=== PATIENT | male | born 1940 | race Caucasian/White ===

== ENCOUNTER 2016-03-05 00:05 | Day surgery (SDC) | payer MEDICARE, OTHER ==
[2016-03-05] VITALS (15 sets, daily range): BP systolic 123–171; BP diastolic 65–95; PULSE 48–72; RESP 10–22; O2SAT 91–100
[~2016-03-05] VITALS: Ht 175.3 cm; Wt 104.3 kg
[~2016-03-05 00:05] MED LIST: ALLO300T2 PO; ATEN50TA PO; FLC50T PO; FUR20 PO; LISI1TAB9 PO; RIVA20TA PO
[2016-03-05] MEDS ORDERED: EPHEDrine/NS 5 mg/mL 5 mL Syringe ONE (00:06)
[2016-03-05] MEDS ORDERED: Ondansetron 2 mg/mL 2 mL Inj ONE (00:06)
[2016-03-05] MEDS ORDERED: Glycopyrrolate 0.2 mg/mL 5 mL Inj ONE (00:06)
[2016-03-05] MEDS ORDERED: Neostigmine 1 mg/mL 5 mL Inj ONE (00:06)
[2016-03-05] MEDS ORDERED: fentaNYL-PF 50 mCg/mL 2 mL Inj ONE (00:06)
[2016-03-05] MEDS ORDERED: Propofol 10,000 mCg/mL 20 mL Inj ONE (00:06)
[2016-03-05] MEDS ORDERED: Phenylephrine 10,000 mCg/mL Inj ONE (00:06)
[2016-03-05] MEDS ORDERED: Lactated Ringer's 1,000 ML IV SCH ×2 (05:00→12:01)
[2016-03-05 07:17] LABS: BASOPHILS % (AUTO) 0.4 % (0-3); EOSINOPHILS % (AUTO) 2.6 % (0-5); Mean Corpuscular Hemoglobin 30.1 pg (27.0-35.0); Mean Corpuscular Volume 98.6 fL (81-100); NEUTROPHILS % (AUTO) 73.9 % (40-74); Platelet Count 208 bil/L (150-400)
[2016-03-05 07:29] LABS: INR 1.09 ratio
[2016-03-05] MEDS ORDERED: 0.9% Sodium Chloride 1,000 ML ONE (08:15)
[2016-03-05] MEDS ORDERED: Heparin 25,000 Unit/500 mL 0.45% NS Premix IV ONE (08:15)
[2016-03-05] MEDS ORDERED: Heparin 1,000 Units/500 mL NS Premix IV ONE ×2 (08:15→10:35)
[2016-03-05] MEDS ORDERED: Heparin 1,000 Unit/mL 10 mL Inj ONE ×2 (08:15→11:49)
[2016-03-05] MEDS ORDERED: Heparin 1,000 Unit/1,000mL NS Premix IV ONE (08:18)
--- NOTE | 2016-03-05 08:43 | PCM.HPANE ---
Patient Data Surgeon Admitting Provider: Attending Provider:Alan Romo MD Primary Care Physician:Cy Alfaro MD Other Provider:[facility] Reason for Visit A-Fib, S/P Cardioversion Ht/WT & BMI Height (Feet): 5 Height (Inches): 9.00 Weight (Kilograms): 99.700 Body Mass Index 32.56 Allergies Coded Allergies: No Known Allergies (Verified , 12/19/15) Past Anesthesia History Anesthesia History: Denies:: Anesthesia Reactions Diabetes History Hx Diabetes?: No MRSA MRSA: No Medications Reported Medications Furosemide 20 Mg Tab20 Mg PO DAILY PRN leg swelling 30 Days Ref 0 03/04/16 Flecainide Acetate 50 Mg [id number] Mg PO BID 30 Days 12/18/15 Atenolol 50 Mg Evqagl26 Mg PO DAILY #30 TABLET Ref 0 11/15/15 Rivaroxaban (Xarelto)20 Mg [id number] Mg PO DAILYWD 11/14/15 Lisinopril / HCTZ 20-12.5 mg 1 Each Tablet1 Each PO DAILY Ref 0 11/14/15 Allopurinol 300 Mg [id number] Mg PO DAILY Ref 0 11/14/15 History History of ENT Problems?: Yes HEENT History: Positive for:: Cataracts (surgically repaired) Denies:: Dysphagia Glaucoma Sinus Problem Hx of Heart Problems?: Yes Cardiovascular History: Positive for:: Hypertension (on medication) Irregular Heartbeat (Afib) Denies:: Cardiac Surgery (cardioversions) Chest Pain Congestive Heart Failure Edema Heart Murmur Other Cardiac History: PT HERE FOR T.E.E FOLLOWED BY ATRIAL FIB ABLATION Hx of Respiratory Problem?: No Hx Neurologic Problems?: No Hx of GI Problems?: No Musculoskeletal History: Positive for:: Joint Replacement (left partial knee replacement) Hx of Psycho/Social Problems?: No Hx Surgeries?: Yes (hernia repair x2, partial knee, catracts. kidney stones, prostatectomy) Hx Any Other Health Problems?: Yes Other History: Denies:: Cancer Hospitalization Thyroid Disease History Blood Transfusions: Positive for:: Accept Blood Products? Denies:: Blood Transfuse Reaction Blood Transfusions Hx Diabetes: No Hx Alcohol Use: Yes (OCCASSIONAL)Hx Substance Use: No Smoking Status: Former Smoker Stop/Bang Risk Assessment Category Category 1A: Patient has history of documented sleep apnea, and HAS NOT received any narcotic, sedative or anesthesia administration during this stay. Category 1B: Patient has history of documented sleep apnea, and HAS received any narcotic , sedative or anesthesia administration during this stay Category 2: Patient has SUSPECTED Obstructive Sleep Apnea, and HAS received any narcotic , sedative or anesthesia administration during this stay. Category 3: Patient has SUSPECTED Obstructive Sleep Apnea and HAS NOT received narcotic, sedative or anesthesia administration during this stay. Category 4: Outpatient in Procedural Areas with known sleep apnea or who screen positive for High Risk via the STOP/BANG questionnaire. Exam Exam Vital Signs Vital Signs Date Time Temp Pulse Resp B/P Pulse Ox O2 Delivery O2 Flow Rate FiO2 03/05/16 07:14 36.4 67 17 138/87 97 Room Air General Appearance: Alert, Oriented X3, Cooperative, No Acute Distress HEENT/AIRWAY: MP 3, Neck Movement (Thick. 30% expected ROM), Mouth Opening ( moderate) Lungs: Clear to Auscultation Heart: Exam Unremarkable Meds/Labs/Diagnostics Labs Test 03/05/16 07:00 White Blood Count 9.1th/mm3 (3.8-10.1) Red Blood Count 4.35mil/mm3 (4.40-5.80) Hemoglobin 13.1g/dL (13.8-17.2) Hematocrit 42.9% (41.0-50.0) Mean Corpuscular Volume 98.6fL (81-100) Mean Corpuscular Hemoglobin 30.1pg (27.0-35.0) Mean Corpuscular Hemoglobin Concent 30.5% (32.0-37.0) Red Cell Distribution Width 16.0% (12.3-15.4) Platelet Count 208bil/L (150-400) Neutrophils (%) (Auto) 73.9% (40-74) Lymphocytes (%) (Auto) 15.9% (14-46) Monocytes (%) (Auto) 7.0% (4-12) Eosinophils (%) (Auto) 2.6% (0-5) Basophils (%) (Auto) 0.4% (0-3) Prothrombin Time 11.7sec (8.1-12.5) Prothromb Time International Ratio 1.09ratio Sodium Level 138mEq/L (134-144) Potassium Level 4.7mEq/L (3.5-5.2) Chloride Level 100mEq/L (97-108) Carbon Dioxide Level 26mmol/L (18-29) Blood Urea Nitrogen 19mg/dL (8-27) Creatinine 1.63mg/dL (0.76-1.27) Estimat Glomerular Filtration Rate 44mL/min (>59) Glucose Level 140mg/dL (60-99) Calcium Level 8.9mg/dL (8.5-10.1) Plan Impression Patient chart reviewed, patient interviewed and anesthestic plan with risks, benefits, and alternatives discussed, and informed consent obtained. ASA Physical Status: ASA3 Severe Disease Anesthetic Support Modalities: Arterial Line Anesthetic Plan: GA Bene/Risks/Altern/Consents: Yes HP Complete Prior to Induction: Yes Antony Nazario MD Mar 05, 2016 08:43
[2016-03-05] MEDS ORDERED: Heparin 5,000 Units/500 mL NS Premix IV ONE (10:03)
[2016-03-05] MEDS ORDERED: Lactated Ringer's 500 ML IV PRN (12:01)
[2016-03-05] MEDS ORDERED: Protamine Sulfate 10 mg/mL 5 mL Inj ONE ×2 (12:04→12:36)
[2016-03-05] MEDS ORDERED: Labetalol 5 mg/mL 4 mL Inj IV PRN (12:05)
[2016-03-05] MEDS ORDERED: HYDROmorphone 1 mg/mL Inj IVPUSH PRN (12:05)
[2016-03-05] MEDS ORDERED: hydrOXYzine Inj 25 MG/1 mL SDV IM PRN (12:05)
[2016-03-05] MEDS ORDERED: fentaNYL-PF 50 mCg/mL 2 mL Inj IVPUSH PRN (12:05)
[2016-03-05] MEDS ORDERED: Phenylephrine 10,000 mCg/mL Inj IVPUSH PRN (12:05)
[2016-03-05] MEDS ORDERED: Dexamethasone 4 mg/mL Inj IVPUSH PRN (12:05)
[2016-03-05] MEDS ORDERED: EPHEDrine Sulfate 50 mg/mL Inj IM PRN (12:05)
[2016-03-05] MEDS ORDERED: Atropine 0.4 mg/mL Inj IVPUSH PRN (12:05)
[2016-03-05] MEDS ORDERED: hydrALAZINE 20 mg/mL Inj IVPUSH PRN (12:05)
[2016-03-05] MEDS ORDERED: Ondansetron 2 mg/mL 2 mL Inj IVPUSH PRN ×2 (12:05→18:55)
[2016-03-05] MEDS ORDERED: EPHEDrine Sulfate 50 mg/mL Inj IVPUSH PRN (12:05)
[2016-03-05] MEDS ORDERED: HYDROcodone-APAP 5-325 mg Tablet PO PRN (12:35)
--- NOTE | 2016-03-05 13:59 | PROCED ---
[address] [address] PROCEDURE NOTE PATIENT: GEMINI SUERO : 1940 MR#: [id number] ADMIT: 03/05/2016 JOB ID: [id number] DATE OF SERVICE: 03/05/2016 PREOPERATIVE DIAGNOSIS(ES): Persistent drug refractory symptomatic atrial fibrillation. POSTOPERATIVE DIAGNOSIS(ES): Persistent drug refractory symptomatic atrial fibrillation. PROCEDURES PERFORMED: 1. Comprehensive electrophysiology study. 2. Three-dimensional electroanatomical mapping using the CARTO 3 system. 3. Intracardiac echocardiography. 4. Transseptal puncture x2. 5. Atrial fibrillation ablation with pulmonary vein isolation. 6. Barium esophagram. 7. Direct current cardioversion. 8. Fluoroscopy. SURGEON: Alan Romo MD, electrophysiology attending. ASSISTANTS: 1. Chan ePrry. 2. Jerrod Richmond PA-C. ANESTHESIA: General endotracheal anesthesia was undertaken for this case. INDICATION: The patient is a pleasant 75-year-old man with symptomatic persistent drug refractory atrial fibrillation. After discussion of risks and benefits of catheter-based mapping and ablation, he opted to proceed. PROCEDURAL DESCRIPTION: Following informed signed consent, the patient was taken to the EP laboratory in a fasting, nonsedated state, where he was prepped and draped in the usual sterile fashion. He underwent a preprocedural transesophageal echocardiogram to confirm lack of intracardiac thrombus. This was performed by Dr. Luna. Please see separate dictated report for the details of that procedure. The bilateral groins were then infiltrated with 1% lidocaine. Then, using modified Seldinger technique, two 8-Bulgarian sheaths were inserted into the right femoral vein. A 7 and a 10.5-Bulgarian sheaths were inserted into the left femoral vein. Under fluoroscopic guidance, a deflectable decapolar catheter was advanced to the coronary sinus with most proximal bipole at the os of the sinus. An intracardiac echocardiography probe was advanced to the RV outflow tract and used to visualize the pericardial space. A trivial physiologic amount of pericardial fluid was seen. The ICE probe was pulled back into the right atrium and used to visualize the interatrial septum and assistance with transseptal puncture. Two transseptal punctures were performed in an identical fashion. Each of the short 8-Bulgarian sheaths were exchanged over a long wire for a Agee sheath dilator and [place]rough needle. The entire system was used to engage the interatrial septum. Then, under pressure with fluoroscopic and ICE guidance, the septum was traversed twice to deploy the two Agee sheaths into the left atrium. The patient was heparinized for a goal ACT of 350-400 seconds for the entire time in the left atrium following the first and preceding the second transseptal puncture. A re-survey of the pericardial space showed no evidence of effusion beyond the trivial amount that was noted initially. Agee sheaths, an F curve SmartTouch irrigated ablation catheter was passed, as well as a 20-pole PentaRay catheter. A three-dimensional electroanatomical mapping of the left atrium and four pulmonary veins was created using the Sogou 3 system. The pulmonary veins were then sequentially isolated for entrance and exit block starting with the left upper, left lower, right upper and right lower pulmonary veins. Following entrance block in the left upper pulmonary vein, a 200 joule synchronized shock was used to convert the patient to sinus rhythm. Exit block was confirmed in that vein. Then, the remaining veins were isolated. We then left the left atrium, turned off the heparin, reversed the patient's heparin with protamine. Resurvey of the pericardial space showed no evidence of effusion. During the course of this study, we did complete a comprehensive electrophysiology study with right atrial pacing recording, right ventricular pacing recording, His bundle recording, left atrial pacing recording. All catheters and sheaths were removed. Manual pressure was held for hemostasis. The patient has transferred to the [facility] for monitoring and bedrest. A barium esophagram was performed delineating the course of the esophagus closest to the posterior aspect of the left lower pulmonary vein. Lower wattage and shorter duration stone were placed in this area. COMPLICATIONS: None. ESTIMATED BLOOD LOSS: 30-40 cc. FINDINGS: 1. Baseline rhythm is atrial fibrillation. Post cardioversion, he is in sinus rhythm with an RR interval of 1376 msec, QRS 110 msec, QT 603 msec. 2. Intracardiac intervals, HV interval 59 msec. 3. Retrograde conduction, no VA conduction was seen. 4. Pulmonary vein isolation with entrance and exit block as described above. IMPRESSION: Successful pulmonary vein isolation procedure for drug refractory atrial fibrillation. PLAN: 1. Bedrest x4 hours. 2. Continue anticoagulation, flecainide and beta blockade. 3. Protonix 40 mg p.o. daily x1 month. 4. Monitoring overnight. 5. Follow up with Jerrod Richmond in four weeks, with me in three months. ATTENDING STATEMENT: Alan Romo MD, electrophysiology attending, was present for and supervised/performed all aspects of this procedure.
--- NOTE | 2016-03-05 14:04 | NUR ---
PATIENT RETURNED FROM [employer]LE B[employer]PA[employer] CHIEF IN STABLE CONDITION. MAJOR C/O IS DRY MOUTH, TAKING ICE CHIPS, SOME WATER AND PUDDING TAKEN WITHOUT FEELING NAUSEATED. SCHAFFER CATHETER IN PLACE WITH GROSS HEMATURIA OBSERVED. DR. SAGE IS AWARE.
--- NOTE | 2016-03-05 14:15 | PCM.ANEP1 ---
Post Anesthesia Phase 1 PACU Phase 1 Assessment Vital Signs Vital Signs Date Time Temp Pulse Resp B/P Pulse Ox O2 Delivery O2 Flow Rate FiO2 03/05/16 13:59 48 15 125/70 95 Nasal Cannula 3.00 03/05/16 13:45 49 14 125/72 95 Nasal Cannula 4.00 03/05/16 13:30 49 14 125/74 100 Nasal Cannula 4.00 03/05/16 13:25 49 10 126/72 100 FACEMASK 10.00 03/05/16 13:20 49 10 126/73 100 FACEMASK 10.00 03/05/16 07:14 36.4 67 17 138/87 97 Room Air Anesthetic Administered: GA Level of Alertness: Awake, talking MCKEE's with Equal Strength: Yes Pain: No Nausea or Vomiting: No Oxygen Delivery: Simple Mask Lungs: Normal Air Movement Antony Nazario MD Mar 05, 2016 14:15
--- NOTE | 2016-03-05 15:21 | NUR ---
REPORT CALLED TO JOSH SARMIENTO R.N.
--- NOTE | 2016-03-05 16:32 | NUR ---
Pt tx to room 2023 in stable condition by Diogenes Navarro R.N..
--- NOTE | 2016-03-05 18:42 | NUR ---
Arrived to unit Pt arrived to [facility] room 2023 at ~1630, groin site stable, VSS on RA, A&Ox3, Pt reporting mild 1/10 pain in right wrist/forearm from IV site per Pt, IV site functional with no leaking/swelling/redness. Pt's right wrist puncture site free from drainage, distal pulse intact, CMS intact in right hand. Urine in Pt's peña catheter red tinged, MD aware per report from [facility], catheter removed once Pt off bedrest, Pt had not voided prior to shift change, oncoming NOC RN made aware.
[2016-03-06] VITALS: BP 157/91; PULSE 69; RESP 20; O2SAT 95
[2016-03-06 02:56] VITALS: BP 173/88; PULSE 74; RESP 20; O2SAT 96
[2016-03-06 04:36] VITALS: PULSE 79
[2016-03-06] MEDS ORDERED: Pantoprazole 40 mg ER24 Tablet PO SCH (06:30)
--- NOTE | 2016-03-06 06:45 | NUR ---
Throat/Urination Pt reporting that he felt as though he has something stuck in his throat and could not get it out. Pt was able to talk and breath and able to swallow water. Assessed throat and was unable to see anything lodged, uvula was prominent. Gave pt some thickened water and pt reported that it helped some. Approximately 20 minutes later pt reported the feeling was still there and stated "I think they might have nicked something in my throat and would like someone to scope me!" Pt appearing very anxious and upset. Informed pt that I would notify MD. believes some irritation to the throat has occurred r/t post ANGEL LUIS. MD gave orders for some Lidocaine swallow to help relive irritation. Pt stated that Lidocaine was not very effective and could still feel as though something was stuck in his throat. Administered 600mg Ibuprofen to see if it would relive the irritation and inflammation. Ibuprofen mildly effective. Pt reporting discomfort still. Pt also unable to void post Martinez cath removal. Bladder scan showed 540mL. notified and orders for in and out cath given. Cath produced 300 mL of dark adilene urine. UA sent. VSS and Tele SR 60's
--- NOTE | 2016-03-06 06:57 | PCM.ANEP2 ---
Post Anesthesia Evaluation ASA/CMS Post Anesthesia VS in Patient's Normal Range?: Yes Resp Stable; Airway Patent?: Yes CV Function & Hydration Stable: Yes Mental Status Recovered?: Yes Pain control Satisfactory?: Yes N/V Control Satisfactory?: Yes Antony Nazario MD Mar 06, 2016 06:57
[2016-03-06 07:58] VITALS: BP 169/84; PULSE 71; RESP 16; O2SAT 95
[2016-03-06 08:00] VITALS: PULSE 77
--- NOTE | 2016-03-06 08:52 | PCM.DIMED ---
Discharge Instructions Date of Service Mar 06, 2016 Dates of Hospitalization Discharge Diagnosis Discharge Diagnosis Persistent atrial fibrillation Hypertension Impaired renal function Diet Heart Healthy Activity Other (To prevent infection, do not sit in a bath tub, hot tub or pool for one week. To prevent bleeding, do not lift, push or pull more than 10 lbs for 1 week.) Call your provider Fever or Chills, Shortness of breath, Bleeding, Chest pain, Excessive diarrhea, Weakness (unilateral) Patient Instructions Mid-level Provider (F9): Jerrod Richmond PA-C Follow-up with Mid-level in: 3 weeks (appt on Mar 27 at 2:20 (arrival time) at [facility] in [place]) Jerrod Richmond PA-C Mar 06, 2016 08:52
[2016-03-06] MEDS ORDERED: PANT40TA3 PO (08:56)
--- NOTE | 2016-03-06 10:32 | DRSVH ---
[facility] [address] [place] [address] Echocardiogram Report Name: GEMINI SUERO Date: 02/23 Height: 69 in Hospital [facility] Weight: 210 lb Gender: Male BSA: 2.1 m2 : 1940 Age: 75 yrs BP: 88/66 mmHg Reason For Study: Atrial fibrillation Performed By: Florin Musa Referring Physician: SHIRA SAGE Interpretation Summary 1. Normal left ventricular size and systolic function. 2. Grossly normal right ventricular size and systolic function. 3. No thrombus appreciated in the sampled segments of the left atrium or left atrial appendage. 4. Moderate mitral regurgitation Procedure: A 2D transesophageal echocardiogram with spectral and color flow Doppler was performed. The patient was brought to the [facility] in a fasting state. An intravenous line was placed. A topical anesthetic agent was used for oropharangeal anesthesia. A bite block was inserted. Sedation was managed by anesthesiologist; see anesthesiology notes for details. The patient was in normal sinus rhythm during the exam. Left Ventricle: The left ventricle is grossly normal size. The left ventricular ejection fraction is normal. Right Ventricle: The right ventricle is grossly normal size. The right ventricular systolic function is normal. Atria: No thrombus appreciated in the sampled segments of the left atrium or left atrial appendage. There is no Doppler evidence for an interatrial shunt. Mitral Valve: Leaflets appear thin with normal excursion. There is moderate mitral regurgitation. Two jets are appreciated. Aortic Valve: The aortic valve is trileaflet. The aortic valve opens well. There is trace aortic regurgitation. Tricuspid Valve: The tricuspid valve leaflets are thin and pliable. There is mild to moderate tricuspid regurgitation. Pulmonic Valve: The pulmonic valve leaflets are thin and pliable; valve motion is normal. There is a trace or physiologic amount of pulmonic regurgitation. Great Vessels: Intimal thickening versus mild plaque in the dscending aorta. Reading Physician:10:31 AM
--- NOTE | 2016-03-06 12:23 | NUR ---
Discharge Pt ordered to D/C this am. PA aware that Pt had not voided yet independently since peña catheter removal last night. Pt verbalized that he would still like to discharge, that he had a urologist he could contact, and that they lived close to an ED and would go there for a catheter if unable to void today, PA made aware. Pt very eager to discharge. Pt discharged to home with family at ~1045. Pt given discharge educational materials on post-cardiac cath groin site care, cardiac ablation, new prescription, and ANGEL LUIS. Per Pt, PA electronically transmitted new prescription to his pharmacy. Pt's IV access D/C'd and intact. Pt instructed to f/u as arranged with PA, details in discharge paperwork. Pt verbalized understanding of all discharge instructions. All belongings accompanied Pt at time of discharge.
== END 2016-03-06 10:50 | disposition home or self-care (01) ==
LOC: SOUO 00:05 → PCC 16:32 → SOUO 03-06 10:50
PROVIDERS: ATTEND Internal Medicine Cardiovascular Disease
DX: I48.1 Persistent atrial fibrillation (principal); I12.9 Hypertensive chronic kidney disease with stage 1 through stage 4 chronic kidney disease, or unspecified chronic kidney disease; N18.3 Chronic kidney disease, stage 3 (moderate); Z79.02 Long term (current) use of antithrombotics/antiplatelets; Z79.899 Other long term (current) drug therapy; Z87.440 Personal history of urinary (tract) infections
CPT/HCPCS: 36415; 80048; 85025; 85610; 93005; 93613; 93656; 93662; C1730; C1732; C1759; C1769; C1894; C8925; J1644; J2250; J2370; J2405; J2710; J2720; J7040; J7120